=== PATIENT | male | born 1990 | race African-American/Black ===

== ENCOUNTER 2019-06-14 16:22 | Emergency (ER) | payer SELFPAY ==
[~2019-06-14] VITALS: Ht 188 cm; Wt 89.0 kg
[2019-06-14 16:31] VITALS: BP 119/60
== END 2019-06-14 18:20 | disposition left against medical advice (07) ==
LOC: ER 16:22
DX: R07.89 Other chest pain (principal); Z53.21 Procedure and treatment not carried out due to patient leaving prior to being seen by health care provider
CPT/HCPCS: 93005